=== PATIENT | male | born 1980 | race Caucasian/White ===

== ENCOUNTER 2024-07-14 10:50 | Emergency (ER) | payer MEDICAID, OTHER ==
[~2024-07-14] VITALS: Ht 175.3 cm; Wt 74.0 kg
[2024-07-14 12:40] VITALS: BP 135/70; PULSE 92; RESP 18; TEMP 98.6; O2SAT 98
[2024-07-14] MEDS: LIDOCAINE W/ EPINEPHRINE 2% INJ 20ML VIAL ID ONE (13:05)
[2024-07-14] MEDS: TETANUS-DIPTH-ACEL PERTUSSIS 0.5ML SYR Tdap IM ONE (13:23)
[2024-07-14] MEDS ORDERED: CIPR-173 PO (14:49)
[2024-07-14] MEDS ORDERED: IBUP-1455 PO (14:49)
[2024-07-14] MEDS ORDERED: NEOMYCIN-BACITRACIN-POLYM UNITDOSE PKG TOP OINT TOP ONE (15:00)
== END 2024-07-14 14:58 | disposition home or self-care (01) ==
LOC: ER 10:50
DX: S81.811A Laceration without foreign body, right lower leg, initial encounter (principal); Z88.0 Allergy status to penicillin; W26.8XXA Contact with other sharp object(s), not elsewhere classified, initial encounter; Y93.89 Activity, other specified; Y92.89 Other specified places as the place of occurrence of the external cause; Y99.8 Other external cause status
CPT/HCPCS: 12004; 90471; 90715